=== PATIENT | female | born 2000 | race Two or more races ===

== ENCOUNTER 2020-03-15 18:01 | Emergency (ER) | payer MEDICAID, OTHER ==
[~2020-03-15] VITALS: Ht 162.6 cm; Wt 68.0 kg
[2020-03-15] MEDS ORDERED: SODIUM CHLORIDE 0.9% 1,000 ML IV ONE (19:00)
[2020-03-15] MEDS ORDERED: ONDANSETRON HCL 4MG/2ML INJ IV ONE (19:00)
[2020-03-15 20:51] VITALS: BP 129/88
== END 2020-03-15 20:55 | disposition home or self-care (01) ==
LOC: ER 18:01
DX: R11.2 Nausea with vomiting, unspecified (principal); E86.0 Dehydration
CPT/HCPCS: 81025; 96361; 96374; 99283; J2405; J7030